=== PATIENT | female | born 1945 | race Caucasian/White ===

== ENCOUNTER 2017-12-30 11:20 | Emergency (ER) | payer OTHER, MEDICARE ==
--- NOTE | 2017-12-30 12:49 | RADIOLOGY REPORT ---
EXAMINATION: XR KNEE, LEFT CLINICAL INFORMATION: Sprain. Pain COMPARISON: None TECHNIQUE: Four views of the left knee. FINDINGS: Normal bony mineralization. No evidence of acute fracture or dislocation. Calcification bilateral menisci compatible with chondrocalcinosis. Mild decrease in the joint space noted in the tibiofemoral compartment. Small joint effusion with IMPRESSION: 1. No acute osseous abnormality. 2. Chondrocalcinosis bilateral menisci. 3. Small joint effusion.
--- NOTE | 2017-12-30 15:20 | ULTRASOUND REPORT ---
EXAMINATION: US TRIPLEX LOWER EXTREMITY, LEFT CLINICAL INFORMATION: Pain left knee. COMPARISON: None TECHNIQUE: Color-flow triplex imaging with spectral analysis and compression Doppler were performed on the lower extremity. FINDINGS: Respiratory variation, normal compression and augmented flow are noted throughout the lower extremity. The visualized common femoral vein, superficial femoral vein, profunda femoral vein, popliteal vein and midcalf peroneal and posterior tibial venous segments show no evidence of deep venous thrombosis. There is no Hilliard's cyst. There is a tiny amount of fluid in the suprapatellar fossa adjacent to the patella. IMPRESSION: 1. No evidence of deep venous thrombosis involving the lower extremity. 2. There is no Hilliard's cyst. There is a tiny amount of fluid in the suprapatellar fossa adjacent to the patella.
--- NOTE | 2017-12-30 15:38 | ED UPPER/LOWER EXTREMITY COMPL ---
History of Present Illness General Chief Complaint: Lower Extremity Problems Stated Complaint: LEFT KNEE PAIN X 3WKS SORENESS INCREASING TO PAIN Source: patient Exam Limitations: no limitations Vital Signs & Intake/Output Vital Signs & Intake/Output Vital Signs Date Time Temp Pulse Resp B/P B/P Pulse O2 O2 Flow FiO2 Mean Ox Delivery Rate 12/30 1554 76 146/75 12/30 1124 97.2 71 16 165/79 98 Room Air Allergies Coded Allergies: NO KNOWN ALLERGIES (10/22/11) Triage Note: PT TO ED WITH C/O ATRAUMATIC LEFT KNEE PAIN, WORSE WITH MOVEMENT. NO REDNESS, SWELLING, WARMTH NOTED. STATES ONLY PAINFUL WITH AMBULATION. Triage Nurses Notes Reviewed? yes HPI: Patient is a 72-year-old female who presents emergency department complaining of left knee pain. States she woke up this morning with sharp pain in her knee. It has been bothering her with ambulation over the past few weeks but today got worse. Denies any numbness or tingling. She does admit to some calf pain. Denies any falls injury or direct trauma to her knee. No low back pain. No previous injuries to this knee. She took motrin with minimal relief. . (Moise Wade PA-C) Past History Travel History Traveled to [place] past 21 day No Medical History Any Pertinent Medical History? see below for history Cardiovascular: hypertension, HIGH CHOLESTEROL Gastrointestinal: GERD Surgical History Surgical History: none Psychosocial History What is your primary language Guyanese Tobacco Use: Never used Family History Hx Contributory? No (Moise Wade PA-C) Review of Systems Review of Systems Constitutional: Reports: no symptoms. EENTM: Reports: no symptoms. Respiratory: Reports: no symptoms. Cardiovascular: Reports: no symptoms. Musculoskeletal: Reports: see HPI. Skin: Reports: no symptoms. All Other Systems: Reviewed and Negative (Moise Wade PA-C) Physical Exam Physical Exam General Appearance: well developed/nourished, no apparent distress Head: atraumatic, normal appearance Eyes: Bilateral: normal appearance, PERRL. Ears, Nose, Throat: normal ENT inspection Neck: supple Cardiovascular/Respiratory: normal breath sounds, regular rate/rhythm Knee Left: No significant swelling of left knee, non ttp, no focal bony tenderness, mild tenderness of proximal calf. No edema, neurovascularly intact. Skin: intact, normal color, warm/dry (Mauro MCCRACKENMoise) Progress Differential Diagnosis: compartment syndrome, contusion, dislocation, DVT, fracture, gout, sprain, tendon injury Plan of Care: 72-year-old female with atraumatic left knee pain. No significant swelling or tenderness to palpation on exam. Her x-ray does not show any evidence of fracture. Ultrasound was negative for DVT. Likely muscle strain or tendon/ ligament injury. Not consistent with septic arthritis or gout. Will follow-up with Orth O/PCP. she was given Javier wrap. She has walker and cane at home. Encourage Tylenol for pain. Rice therapy discussed. Return immediately with any new or worsening symptoms. She is in agreement with plan of care. Diagnostic Imaging: Viewed by Me: Radiology Read, Ultrasound. Discussed w/RAD: Radiology Read, Ultrasound. Radiology Impression: PATIENT: JAK JEREZ PRESENT AGE: 72 PATIENT ACCOUNT NO: [id number] : 43 LOCATION: [facility] ORDERING PHYSICIAN: Moise Wade PA-C SERVICE DATE: 12/30/17 EXAM TYPE: US - US-UNILATERAL VENOUS DOPPLER EXAMINATION: US TRIPLEX LOWER EXTREMITY, LEFT CLINICAL INFORMATION: Pain left knee. COMPARISON: None TECHNIQUE: Color-flow triplex imaging with spectral analysis and compression Doppler were performed on the lower extremity. FINDINGS: Respiratory variation, normal compression and augmented flow are noted throughout the lower extremity. The visualized common femoral vein, superficial femoral vein, profunda femoral vein, popliteal vein and midcalf peroneal and posterior tibial venous segments show no evidence of deep venous thrombosis. There is no Hilliard's cyst. There is a tiny amount of fluid in the suprapatellar fossa adjacent to the patella. IMPRESSION: 1. No evidence of deep venous thrombosis involving the lower extremity. 2. There is no Hilliard's cyst. There is a tiny amount of fluid in the suprapatellar fossa adjacent to the patella. DICTATED BY: Giovani Perrin MD DATE/TIME DICTATED:1514 ASSISTANT ELEMENTARY TEACHER:MARVEL DATE/TIME TRANSCRIBED:12/30/171514 CONFIDENTIAL, DO NOT COPY WITHOUT APPROPRIATE AUTHORIZATION. <Electronically signed in Other Vendor System> SIGNED BY: Giovani Perrin MD 12/30/17 1520, PATIENT: JAK JEREZ PRESENT AGE: 72 PATIENT ACCOUNT NO: [id number] : 43 LOCATION: [facility] ORDERING PHYSICIAN: Paul Alexander DO SERVICE DATE: 12/30/17 EXAM TYPE: RAD - XRY-KNEE COMPLETE LEFT EXAMINATION: XR KNEE, LEFT CLINICAL INFORMATION: Sprain. Pain COMPARISON: None TECHNIQUE: Four views of the left knee. FINDINGS: Normal bony mineralization. No evidence of acute fracture or dislocation. Calcification bilateral menisci compatible with chondrocalcinosis. Mild decrease in the joint space noted in the tibiofemoral compartment. Small joint effusion with IMPRESSION: 1. No acute osseous abnormality. 2. Chondrocalcinosis bilateral menisci. 3. Small joint effusion. DICTATED BY: Marie Coleman MD DATE/TIME DICTATED:12/30/171244 ASSISTANT ELEMENTARY TEACHER:MARVEL DATE/TIME TRANSCRIBED:12/30/171244 CONFIDENTIAL, DO NOT COPY WITHOUT APPROPRIATE AUTHORIZATION. <Electronically signed in Other Vendor System> SIGNED BY: Marie Coleman MD 12/30/171248 (Moise Wade PA-C) Departure Departure Time of Disposition: 1535 Disposition: HOME OR SELF CARE Condition: Stable Clinical Impression Primary Impression: Left knee pain Referrals: Reji MENDOSA,Rajiv Lion (PCP/Family) Additional Instructions: Your ultrasound was negative for DVT. Your xray shows no evidence of fracture. Take tylenol for pain as needed. Rest, ice, elevation, compression. Follow up with your PCP. Please go over all results of today's visit with your primary care doctor. Contact your primary care doctor to let them know you were here in the emergency room. There may be nonspecific findings which may not be related to your visit today here in the emergency room but may require further evaluation and chronic monitoring by your primary care doctor. If you had a laceration today the chance of foreign body always remains. You should follow-up with your primary care doctor for recheck in 3-5 days for a wound check. If you had an x-ray done there is a chance that a fracture could have been missed on initial read and you should follow-up with your primary care doctor for repeat x-rays if symptoms persist. If your blood pressure was elevated here in the emergency room please have rechecked by [facility] primary care doctor within the next 48. If you were prescribed a narcotic here in the emergency room or any type of controlled substances you're not allowed to drive while taking this medication or operate any type of heavy machinery. Narcotics can make you feel lightheaded dizziness nausea and can cause constipation. You may need to sisal picker a stool softener. Thank you for choosing [facility] emergency room. Please return to the emergency room immediately if you have any other concerns worsening of symptoms. Departure Forms: Customer Survey General Discharge Information (Mauro MCCRACKEN,Moise) PA/BASE WAD OPERATOR ADJUSTER Co-Sign Statement Statement: ED Attending supervision documentation- [X] I saw and evaluated the patient. I have also reviewed all the pertinent lab results and diagnostic results. I agree with the findings and the plan of care as documented in the PA's/BASE WAD OPERATOR ADJUSTER's documentation. Patient presents for evaluation of left knee pain. Physical examination reveals no signs of trauma or tenderness. [] I have reviewed the ED Record and agree with the PA's/BASE WAD OPERATOR ADJUSTER's documentation. [] Additions or exceptions (if any) to the PAs/BASE WAD OPERATOR ADJUSTER's note and plan are summarized below: [] (Cristina MENDOSA,Paul Davis)
[2017-12-30 15:54] VITALS: BP 146/75
== END 2017-12-30 15:54 ==
LOC: ERH 11:20
DX: M25.562 Pain in left knee (principal); M79.89 Other specified soft tissue disorders
CPT/HCPCS: 73562-LT